=== PATIENT | female | born 1985 | race African-American/Black ===

== ENCOUNTER 2021-04-28 07:08 | Emergency (ER) | payer SELFPAY ==
[2021-04-28 08:59] LABS: SARS-CoV-2 NAA Rapid Test Not Detected (NotDetected)
[2021-04-28 09:20] LABS: Bilirubin Negative (Negative); Blood, Urine Trace (Negative); Glucose, Urine (Dipstick) Negative (Negative); Ketone, Urine Negative (Negative); Leukocyte Trace (Negative); Nitrite Positive (Negative); Protein, Urine (Dipstick) Negative (Neg-Trace)
[2021-04-28 09:21] LABS: Bacteria/HPF 4+ HPF (None Seen); RBC/HPF 0-3 HPF (0-3); WBC/HPF 21-50 HPF (0-3)
[2021-04-28 09:24] LABS: Clarity Hazy (Clear)
== END 2021-04-28 08:50 | disposition short-term general hospital (02) ==
LOC: ERS 07:08
DX: J18.9 Pneumonia, unspecified organism (principal); Z20.822 Contact with and (suspected) exposure to COVID-19
CPT/HCPCS: 0241U; 71045; 81003; 81015; 93005

== ENCOUNTER 2021-06-17 12:18 | Emergency (ER) | payer SELFPAY | END 2021-06-17 15:32 | disposition left against medical advice (07) | LOC: ERS 12:18 | DX: Z53.21 Procedure and treatment not carried out due to patient leaving prior to being seen by health care provider (principal) ==

== ENCOUNTER 2022-08-04 14:14 | Emergency (ER) | payer SELFPAY ==
[2022-08-04 16:14] LABS: SARS-CoV-2 NAA Rapid Test Not Detected (NotDetected)
== END 2022-08-04 16:37 | disposition home or self-care (01) ==
LOC: ERS 14:14
DX: N39.0 Urinary tract infection, site not specified (principal); F17.210 Nicotine dependence, cigarettes, uncomplicated; Z20.822 Contact with and (suspected) exposure to COVID-19
CPT/HCPCS: 99283

== ENCOUNTER 2022-08-21 11:48 | Emergency (ER) | payer SELFPAY ==
[2022-08-21] MEDS ORDERED: Ketorolac Tromethamine 30 MG/ML VIAL ONE (13:09)
== END 2022-08-21 13:40 | disposition home or self-care (01) ==
LOC: ERS 11:48
DX: S46.911A Strain of unspecified muscle, fascia and tendon at shoulder and upper arm level, right arm, initial encounter (principal); F17.210 Nicotine dependence, cigarettes, uncomplicated; X50.0XXA Overexertion from strenuous movement or load, initial encounter
CPT/HCPCS: 96372; 99283; J1885